=== PATIENT | female | born 1980 | race Caucasian/White ===

== ENCOUNTER 2021-09-17 13:28 | Emergency (ER) | payer BC, SELFPAY ==
[~2021-09-17] VITALS: Ht 157.5 cm; Wt 87.1 kg
[2021-09-17 13:30] VITALS: BP_SYST 128
--- NOTE | 2021-09-17 13:30 | NUR ---
Pt to remain in the ER lobby until ER bed becomes available.
--- NOTE | 2021-09-17 15:43 | NUR ---
Pt left without being seen.
== END 2021-09-17 15:43 | disposition left against medical advice (07) ==
LOC: SED 13:28
DX: R10.9 Unspecified abdominal pain (principal); Z53.21 Procedure and treatment not carried out due to patient leaving prior to being seen by health care provider